=== PATIENT | female | born 1950 | race African-American/Black ===

== ENCOUNTER 2018-10-20 09:19 | Inpatient (IN) | payer OTHER ==
[~2018-10-20] VITALS: Ht 152.4 cm; Wt 64.1 kg
--- NOTE | ~2018-10-20 | HC ---
[facility] [place] [address] CONSULTATION Name: RICKY CHO Room #: 363- ADM IN M.R.#: [id number] Admission: 10/20/18 ������������������ Attend Phys: Caridad Presley MD Discharge: ������������������ Date of : 48 Report #: [id number] THIS REPORT FOR: //name// CC: Luis Higgins MD [facility] Jhonathan Presley INDICATION: [id number] combined heart failure. HISTORY OF PRESENT ILLNESS: The patient is a very pleasant 68-year-old -Prydeinig female admitted to the hospital yesterday with progressive shortness of breath and respiratory distress. She has a history of combined heart failure. Echocardiogram last year showed an EF of 45%-50% with mild concentric LVH. She has a history of systolic as well as diastolic heart failure. Cardiac catheterization remotely showed no evidence of coronary artery disease. The patient's primary complaint on arrival was significant shortness of breath and inability to catch her breath. She also had orthopnea ongoing for several days. She denies any chest pain. EKG shows sinus rhythm with left bundle-branch block. A repeat EKG at this time now shows moderate concentric left ventricular hypertrophy and severe LV systolic dysfunction with an ejection fraction of 20%-25%. There is global hypokinesis. PAST MEDICAL HISTORY: 1. Combined heart failure. 2. Hypertension. 3. Remote history of gastrointestinal bleed. 4. Possible hyperlipidemia. 5. Chronic tobacco use. HOME MEDICATIONS: Telmisartan 20 mg p.o. daily, carvedilol 25 mg p.o. b.i.d., furosemide 40 mg p.r.n., clonidine 0.1 mg p.r.n., aspirin 81 mg daily, vitamin D 1000 units sublingual daily, B complex sublingually daily. SOCIAL HISTORY: The patient smokes a pack and half of cigarettes daily. She drinks alcohol occasionally. ALLERGIES: The patient reports an allergy to EPINEPHRINE. PHYSICAL EXAMINATION: VITAL SIGNS: Blood pressure 138/56, pulse 82 and regular. GENERAL: This is a short in stature, thin, pleasant -Prydeinig female, in no distress. Mood and affect appropriate. HEENT: Extraocular muscles intact. Mucous membranes are moist. NECK: Shows no jugular venous distention. CHEST: Presently reveals clear lung [place] without wheezes or rales. CARDIAC: Reveals a regular rhythm with S4. I do not appreciate gallop or S3. [address] [address] CONSULTATION Name: RICKY CHO Room #: 363-P ADM IN M.R.#: [id number] Admission: 10/20/18 ������������������ Attend Phys: Caridad Presley MD Discharge: ������������������ Date of : 48 Report #: [id number] ABDOMEN: Reveals normal bowel sounds. The abdomen is soft, nontender. EXTREMITIES: Shows no edema. Peripheral pulses 2+ and palpable. SKIN: Dry. A 12-lead EKG shows sinus rhythm with left bundle-branch block. A 2-dimensional echocardiogram shows moderate concentric left ventricular hypertrophy with severe global hypokinesis. Ejection fraction estimated to be 20%-25%. Mild left atrial enlargement. The remaining cardiac chambers are normal in size. No significant valvular heart disease was noted. LABORATORY DATA: Reviewed and were remarkable for BUN of 16, creatinine of 1.9. Troponin less than 0.06. NT-proBNP 31,223. Chest x-ray shows mild pulmonary vascular congestion and mild cardiomegaly. IMPRESSION AND RECOMMENDATIONS: 1. Iqxao-lr-odqvjsq combined heart failure, significantly improved with diuresis with IV Lasix. We will resume the patient's home medications as outlined above. I would continue to titrate as tolerated. Recommend the patient start taking Lasix 40 mg p.o. daily with potassium supplement. 2. Hypertension. The patient's blood pressure improved after prompt diuresis. I suspect with the combination of her telmisartan, carvedilol and daily diuresis, her blood pressure should be under better control. We will continue to titrate medications for heart failure as tolerated. 3. Chronic tobacco use. Discussed, smoking cessation advised. The patient appears to be improving. I would recommend another day of diuresis and titration of medications. If she is hemodynamically stable tomorrow, I believe she could be safely discharged on her current regimen of carvedilol, telmisartan, furosemide, potassium. She does have followup on 11/03/[address] Higgins. ��������������������������������������������� ���������������������������������������� By: ��������������������������������������������� 1934 0620 Dayo Serrano MD, FACC /nt
[~2018-10-20 09:19] MED LIST: ASPIRIN81 M2 PO; LOPRESSOR25 PO; NOHOMEMEDICATIONS; NORCO 5-325 TA1 EACH PO; ZPAK PO
[2018-10-20 09:32] VITALS: BP 202/97
[2018-10-20] MEDS ORDERED: COREG25 MG PO (09:44)
[2018-10-20] MEDS ORDERED: TELMISARTAN40 MG PO (09:45)
[2018-10-20] MEDS ORDERED: LASIX 40 MG TAB40 M2 PO (09:45)
[2018-10-20] MEDS ORDERED: ZOCOR20 MG PO (09:45)
[2018-10-20 09:47] LABS: ABSOLUTE NEUTROPHILS 5.8 thou/uL (1.4-8.2); BASOPHILS 1.1 % (0.0-2.0); EOSINOPHILS 2.9 % (0.0-3.0); HEMATOCRIT 47.7 % (37.0-47.0); HEMOGLOBIN 15.9 gm/dL (12.0-15.0); LYMPHOCYTES 21.6 % (24.0-44.0); MCH 29.4 pg (26.0-34.0); MCHC 33.4 g/dL (28.0-37.0); MCV 88.2 fL (80.0-100.0); MONOCYTES 6.4 % (1.0-8.0); PLATELET COUNT 297 thou/uL (150-400); RBC 5.41 mil/uL (4.20-5.00); RDW 15.6 % (10.5-14.5); WBC 8.6 thou/uL (4.0-11.0)
[2018-10-20 09:54] LABS: ANION GAP 12 mmol/L (7-16); BUN 13 mg/dL (7-18); CALCIUM 10.1 mg/dL (8.5-10.1); CHLORIDE 106 mmol/L (98-107); CO2 25 mmol/L (21-32); CREATININE 1.2 mg/dL (0.6-1.0); GLUCOSE 135 mg/dL (74-106); POTASSIUM 3.8 mmol/L (3.5-5.1); SODIUM 143 mmol/L (136-145)
[2018-10-20 10:04] LABS: ALBUMIN 3.7 g/dL (3.4-5.0); SGOT 23 U/L (15-37); SGPT 31 U/L (30-65); TOTAL BILIRUBIN 0.6 mg/dL (<0.1-1.0); TOTAL PROTEIN 8.3 g/dL (6.4-8.2); TROPONIN-I <0.06 ng/mL (<0.06)
[2018-10-20] MEDS ORDERED: CATAPRES0.1 MG PO (13:40)
[2018-10-20] MEDS ORDERED: ASPIR 8181 M1 PO (13:41)
[2018-10-20] MEDS ORDERED: B COMPLEX SUBLI59 M1 SUBLING (13:41)
[2018-10-20] MEDS ORDERED: [UNRECOGNIZED DRUG - OTHER] SUBLING (13:42)
[2018-10-20] MEDS ORDERED: [UNRECOGNIZED DRUG - OTHER] PO (13:44)
[2018-10-20 16:18] VITALS: BP 174/75
[2018-10-20 16:36] VITALS: BP 154/69
[2018-10-20] MEDS ORDERED: PAXIL10 MG PO (16:42)
[2018-10-20] MEDS ORDERED: XANAX 0.5 MG0.5 MG PO (16:46)
[2018-10-20 19:27] VITALS: BP 113/64
[2018-10-20 23:22] VITALS: BP 96/41
--- NOTE | 2018-10-21 04:44 | NUR ---
Patient making progress towards outcome goals. Diuresed from lasix. Patient states overall breathing is improved. SBP improved. High fall risks, fall precautions in place. Uses call light appropriately for needs.
[2018-10-21 05:38] LABS: ABSOLUTE NEUTROPHILS 5.5 thou/uL (1.4-8.2); EOSINOPHILS 2.2 % (0.0-3.0); HEMATOCRIT 47.9 % (37.0-47.0); HEMOGLOBIN 16.1 gm/dL (12.0-15.0); LYMPHOCYTES 21.6 % (24.0-44.0); MCH 29.2 pg (26.0-34.0); MCHC 33.6 g/dL (28.0-37.0); MCV 86.9 fL (80.0-100.0); MONOCYTES 9.5 % (1.0-8.0); PLATELET COUNT 271 thou/uL (150-400); POLYS 65.7 % (36.0-66.0); RBC 5.51 mil/uL (4.20-5.00); RDW 15.8 % (10.5-14.5); WBC 8.4 thou/uL (4.0-11.0)
[2018-10-21 05:46] LABS: CALCIUM 9.8 mg/dL (8.5-10.1); CREATININE 1.9 mg/dL (0.6-1.0); POTASSIUM 3.6 mmol/L (3.5-5.1)
[2018-10-21 06:12] VITALS: BP 122/40
--- NOTE | 2018-10-21 07:56 | EKG ---
[address] [address] ELECTROCARDIOGRAM REPORT Name: RICKY CHO Room #: 363-P ADM IN M.R.#: [id number] ������������������ Admission: 10/20/18 ������������������ Attend Phys: Caridad Presley MD Discharge: ������������������ Date of : 48 Report #: [id number] ����������������������������������������������������������������� [id number] THIS REPORT FOR: //name// [facility] ED Test Date: 2018-10-20 Test Time: 10:04:00 Pat Name: RICKY CHO Department: Room: 363 Gender: F Fundraising Sale Representative: GAURANG : 1950 Requested By: Quentin Castillo Order Number: [id number] MD: Mason Wood Measurements Intervals [place] Rate: 90 P: 74 AL: 142 QRS: -27 QRSD: 162 T: 154 QT: 431 QTc: 528 Interpretive Statements Sinus rhythm Probable left atrial enlargement Left bundle branch block Baseline wander in lead(s) III Compared to ECG 04/29/2013 08:10:23 Electronically Signed On 10-21-2018 7:56:42 CDT by Mason Wood [email or web address] ��������������������������������������������� <ELECTRONICALLY SIGNED> ���������������������������������������� By: Mason Wood MD ��������������������������������������������� 10/21/18 0756 1004 1004 Mason Wood MD /TOM
[2018-10-21 08:04] VITALS: BP 126/65
--- NOTE | 2018-10-21 12:00 | NUR ---
TOWARDS POC PT A/O X4, VSS, AFEBRILE, DENIES PAIN. NO NV, NO SOA. NO CONCERNS VOICED. PT IS ANXIOUS ON GOING HOME TODAY. WILL CONTINUE TO MONITOR.
[2018-10-21 12:17] VITALS: BP 119/55
--- NOTE | 2018-10-21 14:14 | NUR ---
INITIAL ASSESSMENT: Received consult for discharge planning. SW reviewed chart and spoke with nursing and attending physician. Pt was admitted from home due to acute on chronic CHF. Pt with hx of CHF/HTN/HLD. Pt was placed on lasix upon admission. Awaiting echo results at this time. SW met with pt at bedside. Pt was sleeping soundly during time of SW visit. No family present at bedside. Per chart, pt lives at home. Prior to admission, pt was independent with ADLs. Pt's PCP is Dr. Jhonathan Solorzano. Outside Dealer Sales Representative is Dr. Higgins. Plan is for pt to discharge home when medically stable. SW is following to assist as needed with discharge planning.
[2018-10-21 16:36] VITALS: BP 127/65
--- NOTE | 2018-10-21 19:09 | 2DMMODE ---
[facility] [place] [address] 2 D/M-MODE ECHOCARDIOGRAM Name: RICKY CHO Room #: 363-P ADM IN M.R.#: [id number] ������������� Admission: 10/20/18 ������������� Attend Phys: Caridad Presley MD Discharge: ��� ������������� ��� Date of : 48 Date of Service: 10/21/18 1908 �� Report #: [id number] �������� ��������������������������������������������[id number] THIS REPORT FOR: //name// APPROVED REPORT Study performed: 10/20/2018 14:14:25 EXAM: Comprehensive 2D, Doppler, and color-flow Echocardiogram Patient Location: ER Room #: 9 Status: routine BSA: 1.69 HR: 75 bpm BP: 136/76 mmHg Rhythm: NSR Other Information Study Quality: Good Indications Congestive Heart Failure Dyspnea Hypertension/HDD 2D Dimensions RVDd: 31.69 mm IVSd: 14.52 (7-11mm) LVOT Diam: 19.48 (18-24mm) LVDd: 38.26 mm PWd: 13.79 (7-11mm) Ascending Ao: 26.22 (22-36mm) LVDs: 34.07 (25-40mm) Aortic Root: 27.56 mm IVC: 10.00 mm Volumes Left Atrial Volume (Systole) Single Plane 4CH: 45.46 mL Single Plane 2CH: 39.16 mL LA ESV Index: 28.00 mL/m2 Aortic Valve AoV Peak Virgilio.: 1.03 m/s AO Peak Gr.: 4.27 mmHg LVOT Max P.18 mmHg LVOT Max V: 0.74 m/s RICKEY Vmax: 2.13 cm2 Pulmonary Valve PV Peak Virgilio.: 1.12 m/s PV Peak Gr.: 5.03 mmHg [facility] [address] [address] 2 D/M-MODE ECHOCARDIOGRAM Name: RICKY CHO Room #: 363-P ADM IN .R.#: [id number] ������������� Admission: 10/20/18 ������������� Attend Phys: Caridad Presley MD Discharge: ��� ������������� ��� Date of : 48 Date of Service: 10/21/18 1908 �� Report #: [id number] �������� ��������������������������������������������[id number] Tricuspid Valve TR Peak Virgilio.: 1.64 m/s TR Peak Gr.: 10.73 mmHg PA Pressure: 16.00 mmHg Left Ventricle The left ventricle is normal size. There is global hypokinesis of the left ventricle. Moderate concentric left ventricular hypertrophy. Left ventricular ejection fraction is severely decreased. LVEF is 20-25%. Grade I - abnormal relaxation pattern. Right Ventricle The right ventricle is normal size. The right ventricular systolic function is normal. Atria Left atrium is mildly dilated. The right atrium size is normal. Aortic Valve The aortic valve is normal in structure. No aortic regurgitation is present. There is no aortic valvular stenosis. Mitral Valve The mitral valve is normal in structure. Trace to mild mitral regurgitation. No evidence of mitral valve stenosis. Tricuspid Valve The tricuspid valve is normal in structure. There is trace to mild tricuspid regurgitation. Estimated PAP 16 mmHg. There is no pulmonary hypertension. Pulmonic Valve The pulmonary valve is normal in structure. Trace pulmonic regurgitation. Great Vessels The aortic root is normal in size. IVC is normal in size and collapses >50% with inspiration. Pericardium Trace pericardial effusion. <Conclusion> The left ventricle is normal size. [facility] [place] [address] 2 D/M-MODE ECHOCARDIOGRAM Name: RICKY CHO Room #: 363-P ADM IN M.R.#: [id number] ������������� Admission: 10/20/18 ������������� Attend Phys: Caridad Presley MD Discharge: ��� ������������� ��� Date of : 48 Date of Service: 10/21/181907 �� Report #: [id number] �������� ��������������������������������������������[id number] Moderate concentric left ventricular hypertrophy. Left ventricular ejection fraction is severely decreased. LVEF is 20-25%. Grade I - abnormal relaxation pattern. There is global hypokinesis of the left ventricle. Left atrium is mildly dilated. Trace to mild mitral regurgitation. There is trace to mild tricuspid regurgitation. Estimated PAP 16 mmHg. There is no pulmonary hypertension. Trace pericardial effusion. ��������������������������������������������� <ELECTRONICALLY SIGNED> ���������������������������������������� By: Dayo Serrano MD, [facility] ��������������������������������������������� 10/21/181907 07 1908 Dayo Serrano MD, FACC /INF
[2018-10-21 19:19] VITALS: BP 138/56
[2018-10-22 03:40] VITALS: BP 131/54
--- NOTE | 2018-10-22 04:33 | NUR ---
PATIENT IS PROGRESSING RAPIDLY IN CARE PLAN. VITAL SIGNS STABLE WITH PATIENT HAVING NO COMPLAINTS OF PAIN OR NAUSEA. FULLY ORIENTED, PATIENT HAS BEEN ABLE TO PARTICIPATE IN CARE AND CALL APPROPRIATELY FOR NEEDS. PATIENTS BREATHING HAS BEEN FINE EVIDENCED BY SPOT OXYGENATION CHECKS ON ROOM AIR. PATIENT HAS BEEN ABLE TO AMBULATE FREELY THROUGHOUT THE ROOM INCIDENT FREE, AND APPEARS STRONG AND BALANCED WHEN WALKING. SHE IS ANXIOUS FOR POSSIBLE DISCHARGE TODAY. CONTINUE PLAN OF CARE.
[2018-10-22 08:03] VITALS: BP 110/57
--- NOTE | 2018-10-22 10:28 | NUR ---
DISCHARGE NOTE: SW reviewed chart and spoke with nursing. Pt is progressing towards goals for discharge. Awaiting cardiology input regarding discharge. SW met with pt at bedside. Introduced role of SW. Pt is alert/orientated x 4. Pt reports she lives at home with family. Prior to admission, pt was independent with ADLs. Pt continues to drive. Pt states she will find transportation home when she is discharged. No SW needs identified at this time, but is available to assist should needs arise.
[2018-10-22 10:57] LABS: CALCIUM 9.5 mg/dL (8.5-10.1); CREATININE 1.8 mg/dL (0.6-1.0); MAGNESIUM 2.1 mg/dL (1.8-2.4); POTASSIUM 4.1 mmol/L (3.5-5.1)
[2018-10-22] MEDS ORDERED: LASIX 40 MG TAB40 M1 PO (11:28)
[2018-10-22] MEDS ORDERED: K-DUR10 MEQ PO (11:28)
[2018-10-22 11:54] VITALS: BP 117/55
[2018-10-22 12:18] VITALS: BP 117/55
--- NOTE | 2018-10-22 13:48 | NUR ---
ASSUMED PATIENT CARE AT 0700. A/O X4. DENIES SOB. NO CP. PROGRESSING TOWARDS POC GOALS. DC TO HOME NOW.
== END 2018-10-22 13:50 | disposition home or self-care (01) | DRG 291 ==
LOC: ER 09:19 → 3W 12:20 → EROBS 12:20 → 3W 16:32
PROVIDERS: Emergency Medicine; Nurse Practitioner; Nurse Practitioner Family; ADMIT Internal Medicine
DX: I11.0 Hypertensive heart disease with heart failure (principal); J96.01 Acute respiratory failure with hypoxia; I16.1 Hypertensive emergency; N17.9 Acute kidney failure, unspecified; F32.9 Major depressive disorder, single episode, unspecified; T50.2X5A Adverse effect of carbonic-anhydrase inhibitors, benzothiadiazides and other diuretics, initial encounter; D75.1 Secondary polycythemia; I50.43 Acute on chronic combined systolic (congestive) and diastolic (congestive) heart failure; E78.5 Hyperlipidemia, unspecified; I44.7 Left bundle-branch block, unspecified; F17.210 Nicotine dependence, cigarettes, uncomplicated; Z88.8 Allergy status to other drugs, medicaments and biological substances; Y92.89 Other specified places as the place of occurrence of the external cause
CPT/HCPCS: 10879